=== PATIENT | male | born 2000 | race Two or more races ===

== ENCOUNTER 2025-05-05 02:03 | Outpatient (CLI) | payer MEDICAID, SELFPAY ==
--- NOTE | 2025-05-05 06:18 | ETT_ITS ---
APPROVED REPORT Exam: Exercise Treadmill Patient Location: Out-Patient Room/Bed: Stress Nurse: Lindy Duncan RN Ordering Provider:MELIDA HUERTA, Contact Number: [phone] BMI: 32.26 Baseline Rhythm: Sinus Rhythm Indications: exertional chest pain Medical History Medical History: mild intermittent asthma, exertional chest pain Cardiac Medications: albuterol sulfate, advair diskus, pantoprazole Allergies: NKA Cardiac Risk Factors: asthma Previous Cardiac Procedures: n/a Pretest Chest Pain Characteristics: No chest pain Exercise History: Physically active Physical Disabilities: n/a Lung Sounds: Clear to auscultation Heart Sounds: Irregular Stress Test Details Test: Exercise stress testing was performed using a Dmitry protocol. Rest Stress HR Resting HR Supine: 83 bpm Max Heart Rate (APMHR): 197 bpm Resting HR Standin bpm Target HR (85% APMHR): 167 bpm Max HR Achieved: 197 bpm % of APMHR: 100 Recovery HR: 110 bpm HR response to stress: Normal HR response to stress BP Resting BP Supine: 110/72 mmHg Resting BP Standin/72 mmHg Max BP: 180/52 mmHg Recovery BP: 124/60 mmHg BP response to stress: Normal blood pressure response to stress. ECG Resting ECG: Sinus Rhythm, nonspecific ST-T abnormalities Ectopy: n/a Stress ECG: Sinus Tachycardia ST Change: No significant ST segment changes noted Arrhythmia: None Recovery ECG: Sinus Tachycardia Recovery ST Change: No significant ST segment changes noted Recovery Arrhythmia: None Clinical Reason for Termination: Target HR Achieved Stress Symptoms: Dyspnea Exercise duration: 11 min33 sec Highest Stage Reached: Stage 4: 4.2 mph at 16% grade. Exercise capacity: 13.48 METs Angina Score: None Rate Pressure Product: [id number] Stress ECG Conclusion 1. Resting electrocardiogram was normal 2. Patient exercised on the Dmitry protocol and completed workload of 14 METS 3. Normal heart rate and blood pressure response to exercise. The patient achieved 100% of maximal predicted heart rate for age 4. There was no electrocardiographic evidence of myocardial ischemia 5. There were no dysrhythmias Stress Test Summary STAGE Time (mins) Speed (mph) Grade (%) HR BP SpO2 SYMPTOMS METS Supine 83 110/72 96 Standing 69 122/72 1 3 1.7 10 104 136/52 95 4.5 2 6 2.5 12 129 136/50 97 7 3 9 3.4 14 162 160/60 10 4 12 4.2 16 194 93 mod. SOB 13 1 min recovery 162 158/50 96 3 min recovery 115 180/52 95 6 min recovery 114 134/54 94 9 min recovery 110 124/60 94 Pt reached max HR/test was stopped. Pt experienced moderate SOB r/t chronic asthma and used his albuterol rescue inhaler during recovery. SOB improved to baseline and pt left ambulatory in no acute distress.
== END 2025-05-05 02:23 ==
LOC: DI 02:04
PROVIDERS: Visit Provider Internal Medicine Cardiovascular Disease
DX: R07.9 Chest pain, unspecified (principal)
CPT/HCPCS: 93017

== ENCOUNTER 2025-05-16 00:18 | Outpatient (CLI) | payer MEDICAID, SELFPAY ==
--- NOTE | 2025-05-16 07:30 | DI.US_ITS ---
APPROVED REPORT EXAM: Comprehensive 2D, Doppler, and color-flow Echocardiogram Patient Location: Out-Patient Vice President Of Procurement: Jakob Bowman RDCS (AE) Indications: Exertional chest pain Other Information Study Quality: Good Conclusion Normal left ventricular wall thickness and chamber size. Ejection fraction is 65%. Wall motion is normal Normal right ventricular size and function Both atria are normal in size There is no structural or hemodynamically significant valvular disease Wall motion Left Ventricle The left ventricle is normal size. Left ventricular systolic function is normal. The left ventricular ejection fraction is within the normal range. There is normal left ventricular wall thickness. There is normal LV segmental wall motion. The left ventricular diastolic function is normal. There is no v entricular septal defect visualized. LVEF is 65%. Right Ventricle The right ventricle is normal size. The right ventricular systolic function is normal. Atria The left atrium size is normal. The right atrium size is normal. The interatrial septum is intact with no evidence for an atrial septal defect. Aortic Valve The aortic valve is normal in structure. Aortic valve is trileaflet. There is no aortic valvular stenosis. No aortic regurgitation is present. Mitral Valve The mitral valve is normal in structure. No evidence of mitral valve stenosis. Trace mitral regurgitation. Tricuspid Valve The tricuspid valve is normal in structure. There is no tricuspid valve stenosis. Trace to mild tricuspid regurgitation. The RVSP is 18.4 mmHg. Pulmonic Valve The pulmonary valve is normal in structure. There is no pulmonic valvular stenosis. Mild pulmonic regurgitation. Great Vessels The aortic root is normal in size. The ascending aorta is normal in size. Aortic arch is normal in caliber. IVC is normal in size and collapses >50% with inspiration. Pericardium There is no pericardial effusion. 2D Dimensions IVSD d PLAX 0.81 cm M: 0.6-1.2 Ao Root d 2.96 cm M: 3.1 - 3.7 LVPW d PLAX 0.84 cm M: 0.6 - 1.2 Ao Asc Diam d 3.03 cm M: 2.6 - 3.4 LVID d PLAX 5.28 cm M: 4.2 - 5.8 LVDs 3.26 cm M: 2.5 - 4.0 LV EF Teichholz 68.2 % FS 38.33 % LV EDV (Teich) 134.1 mL LV ESV (Teich) 42.7 mL Stroke Vol Index (Teich) 44.79 M-Mode TAPSE 2.79 cm (M/F) >1.7 Auto EF LV EDV A4C 154.8 mL LV EDV A2C 156.3 mL LV EDV BP 155.9 mL LV ESV A4C 55.4 mL LV ESV A2C 52.4 mL LV ESV BP 54.0 mL LVEF(%) A4C 64.2 % LVEF(%) A2C 66.5 % LVEF(%) BP 65.4 % LV SV A4C 99.4 ml LV SV A2C 104.0 ml LV SV BP 101.9 ml LV CO A4C 6.1 L/min LV CO A2C 5.4 L/min LV CO BP 5.7 L/min HR A4C 61.12 BPM HR A2C 51.50 BPM LV EDV Index (BP) LA Volume LA Length A4C 4.6 cm LA Length A2C 4.7 cm LA Area A4C s 11.03 cm2 LA Area A2C s 12.64 cm2 LA Vol A4C A-L 22.22 mL LA Vol A2C A-L 28.71 mL LA Vol Biplane A-L 25.5 mL LA Vol/BSA A4C A-L LA Vol/BSA A2C A-L LA Vol/BSA BP A-L 12.5 mL/m2 LA Vol A4C MOD 21.2 mL LA Vol A2C MOD 26.7 mL LA Vol BP MOD 23.7 mL RA Volume RA Area A4C 12.1 cm2 RA ESV A4C (A-L) 31.8mL RA Vol/BSA A4C A-L RA Length A4C 3.9 cm RA ESV A4C (MOD) 29.3mL LV Diastology MV E' medial 0.142 (>0.07 m/s) MV E Vmax 0.95 (0.4-1.3 m/s) MV E/E' MED 6.68 (<14) MV A Vmax 0.45 (0.4-1.3 m/s) MV E' lateral 0.183 (>0.1 m/s) E/A Ratio 2.1 MV E/E' LAT 5.19 (<14) MV E' Average 0.162 m/s MV E/E'(average) 5.84 Aortic Valve AoV Vmax 1.31 m/s LVOT Vmax 1.19 m/s AoV Peak Grad 6.9 mmHg LVOT Peak Grad 5.6 mmHg AoV Area (Vmax) 3.34 cm2 LVOT VTI 0.239 m AoV VTI 0.311 m LVOT Mean Grad 2.7 mmHg AoV Mean Antony. 0.92 m/s LVOT SV 88.09 mL AoV Mean Grad 3.9 mmHg LVOT Diam s 2.15 cm AoV Area (VTI) 2.83 cm2 AV Regurg Peak Gr. 6.89 mmHg Velocity Ratio 0.91 Mitral Valve MV DT 179 (160-240 msec) Pulmonary Valve PV Vmax 0.97 (0.5-1.5 m/s) RVOT Vmax 0.72 m/s PV Peak Grad 3.7 mmHg RVOT Peak Gr. 2.1 mmHg PV Mean Antony 0.73 m/s RVOT VTI 0.153 m PV Mean Grad 2.3 mmHg RVOT Mean Gr. 1.1 mmHg Tricuspid Valve RA Pressure 3.00 mmHg TR Vmax 1.97 m/s TR Peak Grad 15.4 mmHg RVSP (TR) 18.4 mmHg
== END 2025-05-16 00:38 ==
LOC: DI 00:18
PROVIDERS: Visit Provider Internal Medicine Cardiovascular Disease
DX: R07.89 Other chest pain (principal)
CPT/HCPCS: 93306

== ENCOUNTER 2025-06-06 00:14 | Outpatient (CLI) | payer MEDICAID, SELFPAY ==
--- NOTE | 2025-06-06 05:45 | DI.US_ITS ---
Exam(s) US ABDOMEN EXAM: US ABDOMEN CLINICAL HISTORY: EPIGASTRIC PAIN, POSTPRANDIAL PAIN,R10.13 TECHNIQUE: Ultrasound abdomen performed using standard protocol. COMPARISON: No exams were available for comparison FINDINGS: LIVER: Normal size and echogenicity. No focal liver lesions are seen. GALLBLADDER: No evidence of cholelithiasis. No evidence of wall thickening. No pericholecystic fluid identified. REID'S SIGN: Negative. BILIARY SYSTEM: No intrahepatic or extrahepatic biliary ductal dilation. KIDNEYS: Kidneys are symmetric in size. No evidence of renal calculi. No evidence of hydronephrosis. No renal mass or cyst identified. PANCREAS: Normal where visualized. SPLEEN: Not enlarged. ABDOMINAL AORTA AND IVC: Visualized portions normal caliber. ASCITES: None seen. IMPRESSION: Normal sonographic appearance of the upper abdomen. DATA REPOSITORY:
== END 2025-06-06 00:34 ==
LOC: DI 00:15
PROVIDERS: Visit Provider Surgery
DX: R10.13 Epigastric pain (principal)
CPT/HCPCS: 76700

== ENCOUNTER 2025-06-19 07:53 | Day surgery (SDC) | payer MEDICAID, SELFPAY ==
[2025-06-19 08:11] VITALS: BP 124/69; PULSE 63; RESP 16; TEMP 36.5; O2SAT 99
--- NOTE | 2025-06-19 08:12 | W.PM.DSUDISC ---
Date of service: 06/19/25 Discharge Plan Disposition Patient Disposition: Home Condition: Stable Discharge Details Attending Provider: Berna Newman Primary Care Provider: Andrea Benavidez Recommendations for Follow Up Recommended tests to be ordered by follow up provider: I will obtain and review pipida scan to further evaluate the epigastric pain Home Meds and New Rx's Prescriptions: Continued fluticasone propion-salmeterol [Advair Diskus] 100-50 mcg/dose blister with device 1 inh inhalation BID albuterol sulfate [Ventolin HFA] 90 mcg/actuation HFA aerosol inhaler 2 puff inhalation Q6H PRN Discharge Instructions Additional Instructions: EGD today shows mild stomach lining irritation only. Not suspicious as the cause for your stomach pain as it is so mild. Will follow the biopsy result for H pylori infection, and will notify you in writing of the result. I expect we might find the cause of his pain on scheduled pipida scan. Office follow up after pipida scan. If you dont have a follow up scheduled to see me back in office after the gallbladder scan, please call my office to make one. We will want to meet to review all testing and conclusions and decide on a plan of action. Stand Alone Forms: Anesthesia Discharge Inst., DSU Post EGD Instructions, Wolf Arevalo (DSU) Activity:: Activity as Tolerated Diet:: As Tolerated Discharge Orders Discharge Orders: Discharge Order (Routine); Ordered 06/19/25 Ordered By: Berna Newman DS: Diagnosis Discharge Diagnosis (1) Epigastric pain: Status: Acute (2) Mild chronic gastritis: Status: Acute
[2025-06-19] MEDS: Lactated Ringers 1,000 ML 80 ML IV (08:22)
--- NOTE | 2025-06-19 08:23 | ANES.PREOP_ITS ---
General Info Date of Service Date Performed: 06/19/25 Height: 5 ft 7 in Weight: 92.1 kg Body Mass Index (BMI): 31.8 Surgical Procedure: Operation Date: 06/19/25 09:05 Proposed Procedure Side Surgeon p Gastroscopy Berna Newman MD Meds Allergies and Home Medications Allergies Allergy/AdvReac Type Severity Reaction Status Date / Time pantoprazole AdvReac Severe Fever, SOB Verified 06/19/25 08:10 Home Medication ?Medication ?Instructions ?Recorded fluticasone 100 mcg-salmeterol 50 1 inh inhalation BID 04/15/25 mcg/dose blistr powdr for inhalation (Advair Diskus) albuterol sulfate 90 mcg/actuation 2 puff inhalation Q 6H PRN 04/23/25 aerosol inhaler (Ventolin HFA) Current Visit Medications: Current Medications Generic Name Dose Route Start Last Admin Trade Name Freq PRN Reason Stop Dose Admin Ringer's Solution 1,000 mls @ 80 mls/hr 06/19/25 06:00 06/19/25 08:22 IV 06/19/25 23:59 80 mls/hr INFUSION MONAE Administration IV Miscellaneous Supplies 1 each 06/19/25 06:00 Iv Access IV 06/19/25 23:59 DIRECTED MONAE Sodium Chloride 0 ml 06/19/25 06:00 Normal Saline Flush 10 Ml Syr IV 06/19/25 23:59 PRN PRN Sodium Chloride 0 ml 06/19/25 06:00 Normal Saline 10 Ml Vial IJ 06/19/25 23:59 DIRECTED PRN Sterile Water 0 ml 06/19/25 06:00 Water,Injection,Sterile 10 Ml Vial IJ 06/19/25 23:59 DIRECTED PRN PFSH Active Problems Active Problems: Problem Status Onset Code Exertional chest pain Acute R07.9 Chest pain radiating to upper extremity Acute R07.89 Epigastric pain Acute R10.13 Umbilical hernia Acute K42.9 Medical History Medical History Mild intermittent asthma Surgical History Surgical History Hx of wisdom tooth extraction Tobacco Smoking/Tobacco Use Status: Never Passive smoking exposure: No Alcohol Alcohol Intake: never Substance Use Substance use: Never Substance use type: does not use Vital Signs and Lab Results Vital Signs Most Recent Vital Signs in EMR: Most Recent Vital Signs Temp Pulse Resp BP Pulse Ox 36.5 C 63 16 124/69 99 06/19/25 08:11 06/19/25 08:11 06/19/25 08:11 06/19/25 08:11 06/19/25 08:11 Imaging and Studies Imaging and Studies Study information below may be from another EMR and interpreted by another provider. Please see original notes in EMR for more complete details. Stress Test Summary: 05/16:Stress ECG Conclusion 1. Resting electrocardiogram was normal 2. Patient exercised on the Dmitry protocol and completed workload of 14 METS 3. Normal heart rate and blood pressure response to exercise. The patient achieved 100% of maximal predicted heart rate for age 4. There was no electrocardiographic evidence of myocardial ischemia 5. There were no dysrhythmias Echocardiogram Summary: Conclusion Normal left ventricular wall thickness and chamber size. Ejection fraction is 65%. Wall motion is normal Normal right ventricular size and function Both atria are normal in size There is no structural or hemodynamically significant valvular disease Anesthesia Assessment and Plan Anesthesia History Personal History: No History of Anesthesia Complications Family History: No Family History of Anesthesia Complications Exercise Tolerance Exercise Tolerance: Metabolic Equivalents>4 Pertinent Negatives Pertinent Negatives: No Symptoms of GERD (mild chest discomfort today) Cardiac & Pulmonary Exam Cardiac Exam: Normal S1/S2 Heart Sounds Pulmonary Exam: Clear Bilateral Breath Sounds Implantable Cardiac Device Does patient have a Pacemaker or an ICD?: No Airway Exam Known Difficult Airway: No Mallampati Class: 1 Mouth Opening: Normal (> 3cm) Thyromental Distance: Greater than 3 cm Neck Range of Motion: Full ROM Neck Circumference: Normal Teeth Condition: Normal Dentition ASA Classification ASA Score: ASA 2 Emergency Case?: No NPO Status NPO Status: NPO Clears >2 hours, Solids >8 hours Anesthesia Plan Resuscitation Status: Full Code Anesthesia Technique: General Anesthesia Airway Planned: Natural Airway Monitors Used: Standard Monitors
[2025-06-19 08:39] VITALS: BMI 31.8
--- NOTE | 2025-06-19 08:40 | W.PM.ENDDOP ---
Date of service: 06/19/25 Time of Service: 08:54 Endoscopy Report PRE-OP DIAGNOSIS: Epigastric pain POST-OP DIAGNOSIS: same PROCEDURE: EGD with biopsy SURGEON: Berna Newman ANESTHESIA TYPE: General:No Airway ESTIMATED BLOOD LOSS: 2 PATHOLOGY: other (1. antrum biopsy) COMPLICATIONS: None DISPOSITION: same day INDICATIONS: Evaluation of upper digestive system for epigastric pain source/cause PROCEDURE DESCRIPTION: Lubricated endoscope was passed through a bite block into the second portion of the duodenum. The endoscope was withdrawn and the duodenum stomach and esophageal mucosa examined. The duodenum appeared normal. There is no inflammation or ulceration or erosion. The antrum appears mildly inflamed, evidence of mild chronic gastritis. The fundus appears normal. The cardia appears normal. Antral biopsy obtained with cold forceps for microscopic assessment for H pylori. There is no evidence of hiatal hernia upon retroflexion. GE junction is present at 39cm from the incisors. The Z-line is regular and there is no evidence of Carlson's esophagus. No varices, mucosal lesions or masses. Remainder of the esophagus appears normal The upper digestive system was desufflated and the endoscope withdrawn. No complications. Assessment and plan: Mild chronic gastritis only. Not suspicious as the cause for his epigastric pain symptom. Will follow the biopsy result for H pylori status, but I expect we will find the cause of his pain on scheduled pipida scan. Office follow up after pipida scan.
--- NOTE | 2025-06-19 08:55 | STOM_PTH ---
PATIENT: Kamran Prajapati LOC: [facility] U#:[id number] AGE/SX: 25/M ROOM: RE06/19/[address]: Berna Newman MD : 2000 BED: DIS: 06/19/2025 SPEC #: [id number] RECD: 06/19/25 13:05 STATUS: SHAYNA SIMENTAL #: [id number] ANGELY: 06/19/25 08:[address]: Berna Newman DEPT: Surgical Specimen RECD BY: Cira Pablo ENTERED: 06/19/25 13:05 SP TYPE: STOMACH OTHR DR: Andrea Benavidez Tissues: 1 - STOMACH BIOPSY Procedures: GROSS AND MICRO LEVEL 4 IMMUNOPEROXIDASE STAIN Comments: [id number]
[2025-06-19 08:59] VITALS: BP 113/61; PULSE 80; RESP 14; TEMP 36.5; O2SAT 93
[2025-06-19 09:11] VITALS: BP 94/55; PULSE 54; RESP 14; TEMP 36.3; O2SAT 100
--- NOTE | 2025-06-19 09:15 | W.ANESPOSTOP ---
Postoperative Evaluation Date, Time and Location Date Performed: 06/19/25 Time Performed: 09:15 Patient Location: Day Surgery Unit Vital Signs Most Recent Imported Vital Signs: Most Recent Vital Signs Temp Pulse Resp BP Pulse Ox 36.3 C L 54 L 14 94/55 L 100 06/19/25 09:11 06/19/25 09:11 06/19/25 09:11 06/19/25 09:11 06/19/25 09:11 Pain Score Most Recent Pain Score: Most Recent Pain Score Pain Level 0 06/19/25 09:11 Assessment Mental Status: Awake (Alert & Oriented to Patient Baseline) Airway and Respiratory Function: Patent airway with normal (patient baseline) respiratory exam Cardiovascular Function: Hemodynamically Stable Hydration Status: Adequately Hydrated Nausea & Vomiting: No Nausea or Vomiting Pain: Pt. Denies Any Pain Peripheral Nerve Block: Patient did not receive a nerve block
[2025-06-19 09:40] VITALS: BP 120/75; PULSE 71; RESP 14; TEMP 36.4; O2SAT 100
== END 2025-06-19 09:51 | disposition home or self-care (01) ==
PROVIDERS: PCP Family Medicine; Visit Provider Surgery
PROC: 0DJ68ZZ Inspection of Stomach, Via Natural or Artificial Opening Endoscopic (ICD-10-PCS; CPT 43235; principal; 2025-06-19 09:00)
DX: R10.13 Epigastric pain (principal); K29.50 Unspecified chronic gastritis without bleeding; K31.9 Disease of stomach and duodenum, unspecified
CPT/HCPCS: 43239; 88305; 88361; J2003; J2704

== ENCOUNTER 2025-07-16 03:16 | Outpatient (CLI) | payer MEDICAID, SELFPAY ==
--- NOTE | 2025-07-16 05:15 | DI.NM_ITS ---
Exam(s) NM HEPATOBILIARY CCK GRP EXAM: NM HEPATOBILIARY CCK GRP CLINICAL HISTORY: abd epigastric pain,r10.13,r10.11. TECHNIQUE: Injected dose: 5 mCi Tc-99 mebrofenin Initial dynamic images: 60 minutes Post-Gallbladder fillin.4 mcg of CCK was administered intravenously according to protocol. Addition images: According to protocol. COMPARISON: US US ABDOMEN from 06/06/2025 FINDINGS: Normal hepatic transit time. Prompt excretion into the small bowel. Prompt excretion into the gallbladder. Filling of the gallbladder is seen around 45 minutes post-injection. The gallbladder ejection fraction is 7 percent. Normal gallbladder ejection fraction is greater than 40 percent. IMPRESSION: 1. Abnormal examination with a gallbladder ejection fraction of 7 percent. This can be seen with cholecystitis. SN guidelines: Gallbladder visualization should be present by 3 hours. Delayed viiituw-my-dlytc transit beyond 60 min raises the suspicion for partial common bile duct (CBD) obstruction. Gallbladder ejection fraction <35% has a good correlation with acalculous disease (i.e., chronic acalculous cholecystitis, cystic duct syndrome, sphincter of Oddi disease).
[2025-07-16] MEDS: Sincalide 5 MCG VIAL 1.4 MCG IJ (11:03)
[2025-07-16] MEDS: Water,Injection,Sterile 10 ML VIAL IJ (11:04)
== END 2025-07-16 03:36 ==
PROVIDERS: PCP Family Medicine; Visit Provider Surgery
DX: R10.13 Epigastric pain (principal); R10.11 Right upper quadrant pain; K81.9 Cholecystitis, unspecified
CPT/HCPCS: 78227; J2805